=== PATIENT | female | born 1985 | race Caucasian/White ===

== ENCOUNTER 2017-10-16 10:19 | Emergency (ER) | payer OTHER ==
[2017-10-16 10:24] VITALS: BP 122/94; PULSE 89; TEMP 98; BMI 19.8
--- NOTE | 2017-10-16 10:30 | PDOC ---
History of Present Illness - General Chief Complaint: Allergic Reaction Stated Complaint: ALLERGIC REACTION Time Seen by Provider: 10/16/17 10:30 History Source: Patient Exam Limitations: No Limitations - History of Present Illness Initial Comments: 10/16/17 10:51 Pt presents to the ED complaining of a one week history of diffuse, pruritic rash. Yan completed a course of bactrim for sinusitis on 09/30. Denies any other new soaps, foods or detergents. Denies sick contacts. Denies nausea, vomiting, lightheadness, swelling, or shortness of breath. Has taken benadryl today and yesterday with some relief. Past History - Past Medical History Allergies/Adverse Reactions: Allergies Allergy/AdvReac Type Severity Reaction Status Date / Time amoxicillin Allergy Verified 10/16/17 10:25 azithromycin [From Zithromax] Allergy Verified 10/16/17 10:25 cefaclor [From Ceclor] Allergy Verified 10/16/17 10:25 Cephalosporins Allergy Verified 10/16/17 10:25 clarithromycin [From Biaxin] Allergy Verified 10/16/17 10:25 haloperidol [From Haldol] Allergy Verified 10/16/17 10:25 moxifloxacin [From Avelox] Allergy Verified 10/16/17 10:25 Penicillins Allergy Verified 10/16/17 10:25 Sulfa (Sulfonamide Allergy Verified 10/16/17 10:25 Antibiotics) Home Medications: Ambulatory Orders Alprazolam 1 mg PO TID 10/16/17 Dextroamphetamine/Amphetamine [Adderall 10 mg Tablet] 10 mg PO BID 10/16/17 predniSONE [Deltasone -] 40 mg PO DAILY #8 tablet 10/16/17 COPD: No Seizures: Yes - Suicide/Smoking/Psychosocial Hx Smoking History: Current every day smoker Number of Cigarettes Smoked Daily: 20 Information on smoking cessation initiated: Yes 'Breaking Loose' booklet given: 10/16/17 Hx Alcohol Use: Yes Drug/Substance Use Hx: Yes Substance Use Type: Alcohol, Marijuana Review of Systems - Review of Systems Able to Perform ROS?: Yes Is the patient limited British proficient: No Constitutional: No: Symptoms Reported, See HPI, Chills, Diaphoresis, Fever, Loss of Appetite, Malaise, Night Sweats, Weakness, Weight Stable, Unintentional Wgt. Loss, Unexplained wgt Loss, Other HEENTM: No: Symptoms Reported, See HPI, Eye Pain, Blurred Vision, Tearing, Recent change in vision, Double Vision, Cataracts, Ear Pain, Ocular Prothesis, Ear Discharge, Nose Pain, Nose Congestion, Tinnitus, Nose Bleeding, Hearing Loss , Throat Pain, Throat Swelling, Mouth Pain, Dental Problems, Difficulty Swallowing, Mouth Swelling, Other Respiratory: No: Symptoms reported, See HPI, Cough, Orthopnea, Shortness of Breath, SOB with Exertion, SOB at Rest, Stridor, Wheezing, Productive cough, Hemoptysis, Other Cardiac (ROS): No: Symptoms Reported, See HPI, Chest Pain, Edema, Irregular Heart Rate, Lightheadedness, Palpitations, Syncope, Chest Tightness, Other ABD/GI: No: Symptoms Reported, See HPI, Abdominal Distended, Abd. Pain w/ defecation, Blood Streaked Bowels, Constipated, Diarrhea, Difficulty Swallowing , Nausea, Poor Appetite, Poor Fluid Intake, Rectal Bleeding, Vomiting, Indigestion, Abdominal cramping, Tarry Stools, Other : No: Symptoms Reported, See HPI, Burning, Dysuria, Discharge, Frequency, Flank Pain, Hematuria, Incontinence, Pain, Urgency, Testicular Mass, Testicular Swelling, Lesions, Testicular Pain, Other Musculoskeletal: No: Symptoms Reported, See HPI, Back Pain, Gout, Joint Pain, Joint Swelling, Muscle Pain, Muscle Weakness, Neck Pain, Joint Stiffness, Other Integumentary: Yes: Erythema, Lumps, Pruritus, Rash. No: Symptoms Reported, See HPI, Bruising, Change in Color, Change in Hair/Nails, Dryness, Flushing, Lesions, Pallor, Sweating, Other Neurological: No: Symptoms reported, See HPI, Headache, Numbness, Paresthesia, Pre-Existing Deficit, Seizure, Tingling, Tremors, Weakness, Unsteady Gait, Ataxia, Dizziness, Other Psychiatric: No: Anxiety, Depression, Frequent Crying, Stressors, Sleep Pattern Change, Emotional Problems, Mood Swings, Change in Appetite, Other Endocrine: No: Symptoms Reported, See HPI, Excessive Sweating, Flushing, Intolerance to Cold, Intolerance to Heat, Increased Hunger, Increased Thirst, Increased Urine, Unexplained Weight Gain, Unexplained Weight Loss, Change in Weight, Other Hematologic/Lymphatic: No: Symptoms Reported, See HPI, Anemia, Blood Clots, Easy Bleeding, Easy Bruising, Bleeding Diathesis, Lymph Node Abnormalities, Swollen Glands, Other *Physical Exam - Vital Signs Last Vital Signs Temp Pulse Resp BP Pulse Ox 98 F 89 18 122/94 100 10/16/17 10:19 10/16/17 10:19 10/16/17 10:19 10/16/17 10:19 10/16/17 10:19 - Physical Exam General Appearance: Yes: Nourished, Appropriately Dressed. No: Apparent Distress, Disheveled, Mild Distress, Moderate Distress, Severe Distress, Alcohol on Breath, Intoxicated, Cachetic, Obese, Thin, Other HEENT: positive: Normal ENT Inspection, Normal Voice, Pharynx Normal Respiratory/Chest: positive: Lungs Clear, Normal Breath Sounds. negative: Chest Tender, Respiratory Distress, Accessory Muscle Use, Labored Respiration, Rapid RR, Decreased Breath Sounds, Paradoxal Breathing, Crackles, Rales, Rhonchi , Stridor, Wheezing, Hyperresonant, Dullness, Plerual Rub, Other Cardiovascular: positive: Regular Rhythm, Regular Rate, S1, S2. negative: Edema , JVD, Murmur, Bradycardia, Tachycardia, Diastolic Murmur, Systolic Murmur, Gallop/S3, Gallop/S4, Irregularly Irregular, Irregular, Other Integumentary: positive: Dry, Warm, Erythema, Rash (+ diffuse macular rash to torso, extremities and face. + blanching. No discrete lesions or urticaria noted) Neurologic: positive: film editor II-XII NML intact, Fully Oriented, Alert, Normal Mood/ Affect Medical Decision Making - Medical Decision Making 10/16/17 10:56 Pt presents to the ED complaining of diffuse, erythematous, prutitc rash after completing a course of antibiotics for one week. Denies systemic symptoms consistent with anaphylaxis. No muccous membrane lesions consistent with babcock-derek syndrome. Likely allergic rxn--will treat with steroids. Patient already has appointment with engineering programmer in three days. *DC/Admit/Observation/Transfer Diagnosis at time of Disposition: Allergic reaction Qualifiers: Encounter type: initial encounter Qualified Code(s): T78.40XA - Allergy, unspecified, initial encounter - Discharge Dispostion Disposition: HOME Condition at time of disposition: Good Admit: No - Prescriptions Prescriptions: predniSONE [Deltasone -] 40 mg PO DAILY #8 tablet - Referrals - Patient Instructions Printed Discharge Instructions: DI for Adverse Drug Reaction -- Allergic Additional Instructions: return immediately to the ED for facial swelling, nausea and vomiting, shortness of breath, lightheadness or passing out. Make sure that you keep your appointment with your engineering programmer on Tuesday. - Post Discharge Activity
[2017-10-16] MEDS ORDERED: predniSONE 20 MG TABLET (UD) PO ONE (10:45)
[2017-10-16] MEDS ORDERED: predniSONE 20 MG TABLET (UD) ONE (10:47)
== END 2017-10-16 10:53 | disposition home or self-care (01) ==
LOC: FER 10:19
DX: T78.40XA Allergy, unspecified, initial encounter (principal); F17.210 Nicotine dependence, cigarettes, uncomplicated
CPT/HCPCS: 99281-25